=== PATIENT | male | born 1995 | race Caucasian/White ===

== ENCOUNTER 2019-01-29 23:38 | Emergency (ER) | payer MEDICAID, OTHER ==
[2019-01-30] MEDS: KETOROLAC 30 MG INJ IV (01:02)
[2019-01-30] MEDS: HYDROmorphONE 2 MG/ML SYG IV (01:03)
== END 2019-01-30 03:09 | disposition home or self-care (01) ==
LOC: FTE 23:38 → E/R 01-30 03:09
DX: S62.015A Nondisplaced fracture of distal pole of navicular [scaphoid] bone of left wrist, initial encounter for closed fracture (principal); S50.312A Abrasion of left elbow, initial encounter; M79.602 Pain in left arm; V00.131A Fall from skateboard, initial encounter; Y92.9 Unspecified place or not applicable
CPT/HCPCS: 29125; 72100; 73080-LT; 73110-LT; 80048; 85025; 85610; 85730; 96374; 96375; 99284-25